=== PATIENT | male | born 1990 | race Caucasian/White ===

== ENCOUNTER 2018-02-06 15:21 | Emergency (ER) | payer OTHER ==
[~2018-02-06] VITALS: Ht 177.8 cm; Wt 95.2 kg
[~2018-02-06 15:21] MED LIST: CEPH-460 PO; IBUP1TAB7 PO
[2018-02-06 15:27] VITALS: BP 126/85; PULSE 75; RESP 16; TEMP 97.8; O2SAT 96
[2018-02-06] MEDS ORDERED: SODIUM CHLOR 0.9% 1000 ML INJ 1,000 ML IV ONE (15:34)
--- NOTE | 2018-02-06 15:34 | PD ---
HPI Chief Complaint: Flank/Kidney Pain Time Seen by Provider: 15:30 Travel History International Travel<30 days: No Contact w/Intl Traveler<30days: No Traveled to known affect area: No History of Present Illness HPI Patient comes in complaining of acute onset of right flank pain, 05/05, onset approximately 2 hours prior to arrival. Associated nausea but without vomiting or diarrhea. Patient also denies any alleviating or aggravating factors. Patient also denies any associated factors such as fever, rash, chest pain, headache, back pain, abdominal pain. Patient also denies any associated hematuria/urgency/frequency. No nondrug allergies Past medical history significant for oral surgery, kidney stones, sick smoking history PFSH Past Medical History Hx Anticoagulant Therapy: No Diabetes: No Social History Alcohol Use: Yes Tobacco Use: Yes Substance Use: No Allergies-Medications (Allergen,Severity, Reaction): Coded Allergies: No Known Allergies (Unverified Adverse Reaction, Unknown, 02/06/18) Reported Meds & Prescriptions Reported Meds & Active Scripts Active Zofran Odt (Ondansetron Odt) 4 Mg Tab 4 Mg SL Q6HR PRN Ketorolac (Ketorolac Tromethamine) 10 Mg Tab 10 Mg PO TID PRN 5 Days Flomax (Tamsulosin HCl) 0.4 Mg Cap 0.4 Mg PO HS Review of Systems General / Constitutional: No: Fever Eyes: No: Visual changes HENT: No: Headaches Cardiovascular: No: Chest Pain or Discomfort Respiratory: No: Shortness of Breath Gastrointestinal: No: Abdominal Pain Genitourinary: Positive: Flank Pain Musculoskeletal: No: Pain Skin: No Rash Neurologic: No: Weakness Psychiatric: No: Depression Endocrine: No: Polydipsia Hematologic/Lymphatic: No: Easy Bruising Physical Exam Narrative GENERAL: SKIN: Warm and dry. HEAD: Atraumatic. Normocephalic. EYES: Pupils equal and round. No scleral icterus. No injection or drainage. ENT: No nasal bleeding or discharge. Mucous membranes pink and moist. NECK: Trachea midline. No JVD. CARDIOVASCULAR: Regular rate and rhythm. RESPIRATORY: No accessory muscle use. Clear to auscultation. Breath sounds equal bilaterally. GASTROINTESTINAL: Abdomen soft, non-tender, nondistended. MUSCULOSKELETAL: Extremities without clubbing, cyanosis, or edema. No obvious deformities. NEUROLOGICAL: Awake and alert. No obvious cranial nerve deficits. Motor grossly within normal limits. Five out of 5 muscle strength in the arms and legs. Normal speech. PSYCHIATRIC: Appropriate mood and affect; insight and judgment normal. Data Data Last Documented VS Vital Signs Date Time Temp Pulse Resp B/P (MAP) Pulse Ox O2 Delivery O2 Flow Rate FiO2 02/06/18 18:14 82 18 123/70 (87) 97 02/06/18 16:37 Room Air 02/06/18 15:27 97.8 Orders Orders Complete Blood Count With Diff (02/06/18 15:34) Comprehensive Metabolic Panel (02/06/18 15:34) Urinalysis - C+S If Indicated (02/06/18 15:34) Ct Abd/Pel W/O Iv Contrast (02/06/18 15:34) Ecg Monitoring (02/06/18 15:34) Iv Access Insert/Monitor (02/06/18 15:34) Ketorolac Inj (Toradol Inj) (02/06/18 15:45) Sodium Chlor 0.9% 1000 Ml Inj (Ns 1000 M (02/06/18 15:34) Ed Discharge Order (02/06/18 17:33) Labs Laboratory Tests Test 02/06/18 15:55 02/06/18 16:10 Urine Color YELLOW Urine Turbidity CLEAR Urine pH 5.0 Urine Specific [place] GREATER/EQUAL 1.030 Urine Protein TRACE mg/dL Urine Glucose (UA) NEG mg/dL Urine Ketones TRACE mg/dL Urine Occult Blood LARGE Urine Nitrite NEG Urine Bilirubin NEG Urine Urobilinogen 0.2 MG/DL Urine Leukocyte Esterase NEG Urine RBC 50-99 /hpf Urine WBC 3-5 /hpf Urine Squamous Epithelial Cells 6-8 /hpf Urine Calcium Oxalate Crystals FEW /hpf Urine Bacteria NONE /hpf Microscopic Urinalysis Comment CULT NOT INDICATED White Blood Count 10.2 TH/MM3 Red Blood Count 5.20 MIL/MM3 Hemoglobin 15.5 GM/DL Hematocrit 44.3 % Mean Corpuscular Volume 85.2 FL Mean Corpuscular Hemoglobin 29.8 PG Mean Corpuscular Hemoglobin Concent 35.0 % Red Cell Distribution Width 11.6 % Platelet Count 182 TH/MM3 Mean Platelet Volume 9.0 FL Neutrophils (%) (Auto) 81.6 % Lymphocytes (%) (Auto) 13.8 % Monocytes (%) (Auto) 3.3 % Eosinophils (%) (Auto) 0.8 % Basophils (%) (Auto) 0.5 % Neutrophils # (Auto) 8.3 TH/MM3 Lymphocytes # (Auto) 1.4 TH/MM3 Monocytes # (Auto) 0.3 TH/MM3 Eosinophils # (Auto) 0.1 TH/MM3 Basophils # (Auto) 0.1 TH/MM3 CBC Comment DIFF FINAL Differential Comment Blood Urea Nitrogen 15 MG/DL Creatinine 0.97 MG/DL Random Glucose 117 MG/DL Total Protein 7.2 GM/DL Albumin 4.2 GM/DL Calcium Level 8.8 MG/DL Alkaline Phosphatase 66 U/L Aspartate Amino Transf (AST/SGOT) 20 U/L Alanine Aminotransferase (ALT/SGPT) 40 U/L Total Bilirubin 0.3 MG/DL Sodium Level 138 MEQ/L Potassium Level 3.9 MEQ/L Chloride Level 104 MEQ/L Carbon Dioxide Level 26.4 MEQ/L Anion Gap 8 MEQ/L Estimat Glomerular Filtration Rate 92 ML/MIN MDM Medical Decision Making Medical Screen Exam Complete: Yes Emergency Medical Condition: Yes Medical Record Reviewed: Yes Differential Diagnosis Ureterolithiasis versus UTI versus pyelonephritis versus colitis versus diverticular Narrative Course CBC shows no leukocytosis, no anemia, normal platelet count, and no left shift Elect lites are all within normal limits, normal kidney liver functions UA shows hematuria but without any evidence of UTI As of [address] resulted At 1729 CT resulted in read by radiologist as moderate right hydronephrosis secondary to a 5 mm obstructing calculus in the UPJ, right nephrolithiasis. Diagnosis Primary Impression: Ureterolithiasis with hydronephrosis Patient Instructions: General Instructions, Kidney Stones (ED) Scripts Ondansetron Odt (Zofran Odt) 4 Mg Tab 4 MG SL Q6HR Y for Nausea/Vomiting, #20 TAB 0 Refills Prov: Colton Romero MD 02/06/18 Ketorolac (Ketorolac) 10 Mg Tab 10 MG PO TID Y for Pain Management for 5 Days, #15 TAB 0 Refills Prov: Colton Romero MD 02/06/18 Tamsulosin (Flomax) 0.4 Mg Cap 0.4 MG PO HS for Manage Prostate Problems, #5 CAP 0 Refills Prov: Colton Romero MD 02/06/18 Disposition: 01 DISCHARGE HOME Condition: Stable Colton Romero MD Feb 06, 2018 15:34
[2018-02-06] MEDS ORDERED: KETOROLAC TROMETHAMINE 30 MG/ML (IVP) VIAL IV PUSH ONE (15:45)
[2018-02-06 16:06] LABS: BILIRUBIN, URINE NEG (NEG); BLOOD, URINE LARGE (NEG); GLUCOSE,URINE NEG (NEG); KETONE, URINE TRACE mg/dL (NEG); NITRITE,URINE NEG (NEG); URINE COLOR YELLOW (YELLW/STRAW); URINE LEUKOCYTE ESTERASE NEG (NEG)
[2018-02-06 16:10] LABS: CALCIUM OXALATE CRYSTALS,URINE FEW /hpf
[2018-02-06 16:18] LABS: AUTOMATED NEUTROPHIL # 8.3 TH/MM3 (1.8-7.7); BASOPHIL # 0.1 TH/MM3 (0-0.2); BASOPHIL % 0.5 % (0.0-2.0); EOSINOPHIL # 0.1 TH/MM3 (0-0.4); EOSINOPHIL % 0.8 % (0.0-4.0); HEMATOCRIT 44.3 % (39.0-51.0); HEMOGLOBIN 15.5 GM/DL (13.0-17.0); LYMPH % 13.8 % (9.0-44.0); LYMPHOCYTE # 1.4 TH/MM3 (1.0-4.8); MEAN CELL VOLUME 85.2 FL (80.0-100.0); MEAN CORPUSCULAR HEMOGLOBIN 29.8 PG (27.0-34.0); MONO % 3.3 % (0.0-8.0); MONOCYTE # 0.3 TH/MM3 (0-0.9); NEUT % 81.6 % (16.0-70.0); PLATELET COUNT 182 TH/MM3 (150-450); RED CELL DISTRIBUTION WIDTH 11.6 % (11.6-17.2); WHITE BLOOD COUNT 10.2 TH/MM3 (4.0-11.0)
[2018-02-06 16:26] LABS: CHLORIDE 104 MEQ/L (98-107); SODIUM (NA) 138 MEQ/L (136-145)
[2018-02-06 16:29] LABS: CALCIUM 8.8 MG/DL (8.5-10.1)
[2018-02-06 16:30] LABS: ALBUMIN 4.2 GM/DL (3.4-5.0); BICARBONATE 26.4 MEQ/L (21.0-32.0); BLOOD UREA NITROGEN 15 MG/DL (7-18); GLUCOSE,RANDOM 117 MG/DL (74-106)
[2018-02-06 16:33] LABS: ALT (GPT) 40 U/L (12-78); AST (GOT) 20 U/L (15-37); CREATININE 0.97 MG/DL (0.60-1.30); GLOMERULAR FILTRATION RATE 92 ML/MIN (>89)
[2018-02-06 16:35] LABS: TOTAL BILIRUBIN ADULT 0.3 MG/DL (0.2-1.0); TOTAL PROTEIN 7.2 GM/DL (6.4-8.2)
[2018-02-06 16:36] LABS: ALKALINE PHOSPHATASE 66 U/L (45-117)
[2018-02-06 16:37] VITALS: BP 142/75; PULSE 77; RESP 16; O2SAT 96
--- NOTE | 2018-02-06 17:01 | RADRPT ---
EXAM DATE: 02/06/2018 4:41 PM EDT AGE/SEX: 28 years / Male INDICATIONS: Right flank pain. CLINICAL DATA: This is the patient's initial encounter. Patient reports that signs and symptoms have been present for 1 day and indicates a pain score of 10/10. MEDICAL/SURGICAL HISTORY: Renal calculi. None. RADIATION DOSE: 9.60 CTDI (mGy) COMPARISON: No prior exams available for comparison. TECHNIQUE: Multiple contiguous axial images were obtained through the abdomen. Images were obtained using multiple row detector helical technique. Using dose reduction techniques, radiation dose was ke pt as low as reasonably achievable to obtain optimal diagnostic quality images. FINDINGS: Lower Lungs: The visualized lower lungs are clear. Liver: The liver has a homogeneous density without space-occupying lesion. There is no dilation of th e biliary tree. Spleen: Homogeneous density without enlargement. Pancreas: Unremarkable without mass or calcification. Kidneys: The right renal collecting system is moderately distended characteristic of moderate hydron ephrosis. A 5 mm calculus is identified at the right ureteropelvic junction. There are no distal calc chastity identified in the ureter. 2 additional calculi identified within the mid right kidney. There is a 10 mm stone in a posterior calyx and a 2 to 3 mm stone in the anterior calyx. The left kidney and collecting system are normal. Adrenal Glands: Unremarkable. Aorta: The aorta and proximal iliac vessels are grossly unremarkable without aneurysmal dilation. Bowel/Mesentery: The bowel loops are grossly unremarkable. The cecum and sigmoid colon have a normal configuration. Abdominal Wall: Intact. Retroperitoneum: No evidence of adenopathy in the retrocrural, para-aortic, or deep pelvic regions. Bladder: Contours are smooth. Reproductive Organs: No abnormal masses or calcifications seen. Inguinal: The inguinal region is unremarkable without evidence of adenopathy. Bony Structures: Unremarkable. CONCLUSION: 1. Moderate right hydronephrosis secondary to a 5 mm obstructing calculus in the ureteropelvic junct ion. 2. Right nephrolithiasis 3. No other significant abnormality. Electronically signed by: Ian Menjivar MD 02/06/2018 5:00 PM EDT
[2018-02-06] MEDS ORDERED: ZOFR4TAB3 SL (17:33)
[2018-02-06] MEDS ORDERED: TAMS5CAP PO (17:33)
[2018-02-06] MEDS ORDERED: KETO10 PO (17:33)
[2018-02-06 18:14] VITALS: BP 123/70
== END 2018-02-06 18:16 | disposition home or self-care (01) ==
LOC: PHED 15:21
DX: N13.2 Hydronephrosis with renal and ureteral calculous obstruction (principal); R11.0 Nausea; F17.200 Nicotine dependence, unspecified, uncomplicated; Z87.442 Personal history of urinary calculi
CPT/HCPCS: 74176; 80053; 81001; 85025; 96361; 96374; 99284; J1885; J7030